=== PATIENT | male | born 1965 | race Caucasian/White ===

== ENCOUNTER → 2017-11-10 07:55 | Outpatient (CLI) | payer BC | END | disposition home or self-care (01) | LOC: D.RT 07:55 | DX: J45.909 Unspecified asthma, uncomplicated (principal) ==

== ENCOUNTER → 2018-08-12 09:51 | Outpatient (CLI) | payer BC ==
[2018-08-15 14:11] LABS: IMMUNOGLOBULIN E 786 IU/mL (0-100)
== END | disposition home or self-care (01) ==
LOC: D.RAD 08-10 09:00
PROVIDERS: Internal Medicine Pulmonary Disease
DX: J45.909 Unspecified asthma, uncomplicated (principal)